=== PATIENT | female | born 1975 | race Caucasian/White ===

== ENCOUNTER 2018-09-30 08:10 | Day surgery (SDC) | payer BC, OTHER ==
[~2018-09-30] VITALS: Ht 157.5 cm; Wt 76.6 kg
[~2018-09-30 08:10] MED LIST: LIDOCAINE 2%, 20ML ONE; LIDOCAINE 4% TOPICAL SOLUTION 50 ML ONE
[2018-09-30] MEDS ORDERED: FENTANYL PF 100 MCG/2ML ONE (08:46)
[2018-09-30] MEDS ORDERED: MIDAZOLAM 1 MG/ML, 5ML ONE (08:46)
[2018-09-30 08:54] VITALS: BP 127/78
[2018-09-30] MEDS ORDERED: PLEASE ENTER ALLERGIES MC SCH (09:00)
[2018-09-30] MEDS ORDERED: PLEASE ENTER HEIGHT AND WEIGHT MC SCH (09:00)
[2018-09-30 09:18] LABS: HCG UR SG > 1.045 (1.003-1.030)
[2018-09-30 09:21] LABS: BASOPHILS # (AUTO) 0.07 x10^3/uL (0-0.1); BASOPHILS % (AUTO) 0 % (0-1); EOSINOPHILS # (AUTO) 0.43 x10^3/uL (0-0.4); EOSINOPHILS % (AUTO) 3 % (1-7); LYMPHOCYTES # (AUTO) 4.11 x10^3/uL (1-3.4); LYMPHOCYTES % (AUTO) 27 % (22-44); MD NO; MEAN CORPUSCULAR HEMOGLOBIN 26.8 pg (27.0-34.8); MEAN CORPUSCULAR VOLUME 81.1 fL (80-100); MEAN PLATELET VOLUME 7.5 fL (7.4-10.4); MONOCYTES # (AUTO) 0.82 x10^3/uL (0.2-0.8); MONOCYTES % (AUTO) 5 % (2-9); NEUTROPHILS # (AUTO) 9.79 x10^3/uL (1.8-6.8); NEUTROPHILS % (AUTO) 64 % (42-75); PLATELET COUNT 384 x10^3/uL (130-400); RED BLOOD COUNT 5.76 x10^6/uL (3.82-5.3); RED CELL DISTRIBUTION WIDTH 14.9 % (9.6-15.2)
[2018-09-30 09:30] LABS: INTERNATIONAL NORMALIZED RATIO 1.06 (0.93-1.1); PROTHROMBIN TIME 11.2 Seconds (9.6-11.5)
[2018-09-30] MEDS ORDERED: SODIUM CHLORIDE 0.9% 1,000 ML IV SCH (10:00)
== END 2018-09-30 13:35 | disposition home or self-care (01) ==
LOC: OUT 08:10
PROVIDERS: ATTEND Internal Medicine Critical Care Medicine
DX: J40 Bronchitis, not specified as acute or chronic (principal); I10 Essential (primary) hypertension; F17.200 Nicotine dependence, unspecified, uncomplicated; Z79.01 Long term (current) use of anticoagulants
CPT/HCPCS: 31624; 36415; 81025; 85025; 85610; 85730; 87015; 87070; 87102; 87116; 87205; 87206; 88108; 88112; 88312; 99152; 99153; J2250; J3010; J3490

== ENCOUNTER → 2018-11-23 | Outpatient (CLI) | payer BC, OTHER | END | disposition home or self-care (01) | LOC: CFH 10:36 | PROVIDERS: ATTEND Registered Nurse | DX: R91.8 Other nonspecific abnormal finding of lung field (principal); R59.1 Generalized enlarged lymph nodes; R91.1 Solitary pulmonary nodule | CPT/HCPCS: 71250 ==

== ENCOUNTER 2018-12-17 08:39 | Inpatient (IN) | payer BC, OTHER ==
[2018-12-15 09:11] LABS: MEAN CORPUSCULAR HEMOGLOBIN 27.1 pg (27.0-34.8); MEAN CORPUSCULAR HGB CONC 33.1 g/dL (32.4-35.8); MEAN CORPUSCULAR VOLUME 81.8 fL (80-100); MEAN PLATELET VOLUME 7.8 fL (7.4-10.4); PLATELET COUNT 321 x10^3/uL (130-400)
[2018-12-15 09:21] LABS: ALANINE AMINOTRANSFERASE 76 U/L (12-78); ALBUMIN 3.9 g/dL (3.4-5.0); ANION GAP 5 mmol/L (5-15); CALCIUM 9.2 mg/dL (8.5-10.1); CHLORIDE 105 mmol/L (98-107); CREATININE 0.69 mg/dL (0.55-1.02)
[2018-12-15 09:23] LABS: ALKALINE PHOSPHATASE 95 U/L (45-117); BILIRUBIN,TOTAL 0.2 mg/dL (0.2-1.0); TOTAL PROTEIN 7.7 g/dL (6.4-8.2)
[2018-12-15 09:49] LABS: BASOPHILS # (AUTO) 0.04 x10^3/uL (0-0.1); BASOPHILS % (AUTO) 0 % (0-1); EOSINOPHILS # (AUTO) 0.52 x10^3/uL (0-0.4); EOSINOPHILS % (AUTO) 4 % (1-7); LYMPHOCYTES # (AUTO) 5.41 x10^3/uL (1-3.4); LYMPHOCYTES % (AUTO) 39 % (22-44); MD SCAN; MONOCYTES # (AUTO) 1.03 x10^3/uL (0.2-0.8); MONOCYTES % (AUTO) 7 % (2-9); NEUTROPHILS # (AUTO) 6.98 x10^3/uL (1.8-6.8); NEUTROPHILS % (AUTO) 50 % (42-75)
[~2018-12-17] VITALS: Ht 157.5 cm; Wt 88.1 kg
[~2018-12-17 08:39] MED LIST changes: +ALPR-475 PO; +BUPIVACAINE/PF-EPI 0.5% 1:200K ONE; +CHOL100015 PO; +CITA40TA12 PO; +DULA0.75 SC; +EMPA25TA PO; +EZET10TA18 PO; +FLUC200T PO; +LEVO5TAB29 PO; -LIDOCAINE 2%, 20ML ONE; -LIDOCAINE 4% TOPICAL SOLUTION 50 ML ONE; +PREG150C PO; +TRAM-47 PO
[2018-12-17] MEDS ORDERED: LACTATED RINGERS 1,000 ML IV SCH (09:12)
[2018-12-17 09:41] LABS: HCG UR SG 1.042 (1.003-1.030)
[2018-12-17] MEDS ORDERED: MIDAZOLAM 1 MG/ML, 2ML ONE (10:34)
[2018-12-17] MEDS ORDERED: FENTANYL PF 250 MCG/5ML ONE (10:35)
[2018-12-17] MEDS ORDERED: CLINDAMYCIN 150 MG/ML, 6ML ONE (11:05)
[2018-12-17] MEDS ORDERED: hydrALAzine 20 MG/ML, 1ML IVPush PRN (12:00)
[2018-12-17] MEDS ORDERED: KETOROLAC 30 MG/1 ML IVPush PRN (12:00)
[2018-12-17] MEDS ORDERED: ACETAMINOPHEN 325 MG TABLET PO PRN ×2 (12:00→12:30)
[2018-12-17] MEDS: FAMOTIDINE 20 MG TABLET PO SCH ×2 (12:00→22:48)
[2018-12-17] MEDS ORDERED: ONDANSETRON 2MG/ML, 2ML IVPush PRN (12:00)
[2018-12-17] MEDS: INSULIN REGULAR 100 UNITS/ML, 3ML VIAL SQ-INSULIN SCH ×3 (12:00→21:33)
[2018-12-17] MEDS: FAMOTIDINE 20 MG/2 ML IVPush SCH (12:00)
[2018-12-17] MEDS: LACTATED RINGERS 1,000 ML IV SCH ×2 (12:00→22:00)
[2018-12-17] MEDS ORDERED: ACETAMINOPHEN 650 MG SUPP PR PRN (12:00)
[2018-12-17] MEDS ORDERED: DIPHENHYDRAMINE 25 MG CAPSULE PO PRN (12:00)
[2018-12-17] MEDS ORDERED: ENALAPRILAT 1.25 MG/ML, 2ML IVPush PRN (12:00)
[2018-12-17] MEDS ORDERED: KETOROLAC 30 MG/1 ML ONE (12:07)
[2018-12-17] MEDS ORDERED: OXYcodone 5 MG/5 ML ORAL.SOL UDC ONE (12:08)
[2018-12-17] MEDS ORDERED: FENTANYL PF 100 MCG/2ML ONE (12:08)
[2018-12-17] MEDS: FENTANYL PF 100 MCG/2ML IV PRN ×2 (12:11→12:21)
[2018-12-17] MEDS ORDERED: MEPERIDINE/PF 25MG/ML,1ML ONE ×2 (12:22→12:41)
[2018-12-17] MEDS: MEPERIDINE/PF 25MG/0.5ML IVPush PRN ×3 (12:27→12:59)
[2018-12-17] MEDS ORDERED: LABETALOL 5MG/ML, 20ML IV PRN (12:30)
[2018-12-17] MEDS ORDERED: KETOROLAC 30 MG/1 ML IV PRN (12:30)
[2018-12-17] MEDS ORDERED: HYDROmorphone 2 MG/ML, 1ML IVPush PRN (12:30)
[2018-12-17] MEDS ORDERED: OXYcodone 5 MG/5 ML ORAL.SOL UDC PO PRN (12:30)
[2018-12-17] MEDS ORDERED: hydrALAzine 20 MG/ML, 1ML IV PRN (12:30)
[2018-12-17] MEDS ORDERED: DIAZEPAM 5 MG/ML, 2ML IVPush PRN (12:30)
[2018-12-17] MEDS ORDERED: ALBUTEROL SULFATE 2.5 MG/3 ML NPPB PRN (12:30)
[2018-12-17] MEDS ORDERED: PROMETHAZINE 25 MG/ML, 1ML IV PRN (12:30)
[2018-12-17] MEDS ORDERED: EPHEDRINE 50 MG/ML, 1ML ONE (14:37)
[2018-12-17] MEDS ORDERED: DEXAMETHASONE 4 MG/ML, 1ML ONE (14:37)
[2018-12-17] MEDS ORDERED: ONDANSETRON 2MG/ML, 2ML ONE (14:37)
[2018-12-17] MEDS ORDERED: PROPOFOL 10 MG/ML, 20ML ONE (14:37)
[2018-12-17] MEDS ORDERED: SUGAMMADEX 200 MG/2 ML IVPush ONE (14:37)
[2018-12-17] MEDS ORDERED: ROCURONIUM 10MG/ML,5ML ONE (14:37)
[2018-12-17] MEDS: OXYcodone IR 5MG TABLET PO PRN ×2 (18:52→22:48)
[2018-12-17 19:57] VITALS: BP 109/64
[2018-12-17] MEDS: LEVOCETIRIZINE 5 MG TAB PO SCH (21:33)
[2018-12-17] MEDS: PREGABALIN 150 MG CAPSULE PO SCH (21:33)
[2018-12-17] MEDS: EZETIMIBE 10 MG TABLET PO SCH (21:33)
[2018-12-18 00:46] VITALS: BP 99/63
[2018-12-18 03:37] VITALS: BP 101/62
[2018-12-18] MEDS: OXYcodone IR 5MG TABLET PO PRN ×5 (03:51→21:59)
[2018-12-18 05:57] LABS: MEAN CORPUSCULAR HEMOGLOBIN 27.5 pg (27.0-34.8); MEAN CORPUSCULAR HGB CONC 33.3 g/dL (32.4-35.8); MEAN CORPUSCULAR VOLUME 82.6 fL (80-100); MEAN PLATELET VOLUME 8.1 fL (7.4-10.4); PLATELET COUNT 287 x10^3/uL (130-400); RED BLOOD COUNT 4.43 x10^6/uL (3.82-5.3); RED CELL DISTRIBUTION WIDTH 16.2 % (9.6-15.2)
[2018-12-18 06:02] LABS: ANION GAP 8 mmol/L (5-15); CALCIUM 8.5 mg/dL (8.5-10.1); CHLORIDE 105 mmol/L (98-107); CREATININE 0.85 mg/dL (0.55-1.02)
[2018-12-18 07:01] LABS: BASOPHILS # (AUTO) 0.02 x10^3/uL (0-0.1); BASOPHILS % (AUTO) 0 % (0-1); EOSINOPHILS % (AUTO) 0 % (1-7); LYMPHOCYTES # (AUTO) 1.88 x10^3/uL (1-3.4); LYMPHOCYTES % (AUTO) 11 % (22-44); MD SCAN; MONOCYTES % (AUTO) 8 % (2-9); NEUTROPHILS # (AUTO) 13.86 x10^3/uL (1.8-6.8); NEUTROPHILS % (AUTO) 81 % (42-75)
[2018-12-18] MEDS: INSULIN REGULAR 100 UNITS/ML, 3ML VIAL SQ-INSULIN SCH ×4 (07:23→20:27)
[2018-12-18 08:00] VITALS: BP 103/63
[2018-12-18] MEDS: LACTATED RINGERS 1,000 ML IV SCH ×3 (08:00→23:44)
[2018-12-18] MEDS: ENOXAPARIN 40 MG/0.4 ML SQ SCH (08:57)
[2018-12-18] MEDS: PREGABALIN 150 MG CAPSULE PO SCH ×2 (08:57→20:27)
[2018-12-18] MEDS: (Empagliflozin (Jardiance) 25 MG) PO SCH (09:00)
[2018-12-18] MEDS: morphine SULFATE 10 MG/ML, 1ML IVPush PRN ×3 (09:04→19:25)
[2018-12-18] MEDS: FAMOTIDINE 20 MG/2 ML IVPush SCH ×3 (12:00→21:57)
[2018-12-18] MEDS: FAMOTIDINE 20 MG TABLET PO SCH ×2 (12:57→23:44)
[2018-12-18 13:30] VITALS: BP 130/70
[2018-12-18 19:18] VITALS: BP 117/48
[2018-12-18] MEDS: LEVOCETIRIZINE 5 MG TAB PO SCH (20:27)
[2018-12-18] MEDS: EZETIMIBE 10 MG TABLET PO SCH (20:27)
[2018-12-19 01:21] VITALS: BP 126/78
[2018-12-19] MEDS: OXYcodone IR 5MG TABLET PO PRN ×3 (04:14→16:22)
[2018-12-19] MEDS: INSULIN REGULAR 100 UNITS/ML, 3ML VIAL SQ-INSULIN SCH ×4 (06:06→21:03)
[2018-12-19] MEDS: morphine SULFATE 10 MG/ML, 1ML IVPush PRN ×3 (06:09→19:00)
[2018-12-19 09:12] VITALS: BP 107/69
[2018-12-19] MEDS: (Empagliflozin (Jardiance) 25 MG) PO SCH (09:15)
[2018-12-19] MEDS: PREGABALIN 150 MG CAPSULE PO SCH ×2 (09:15→20:57)
[2018-12-19] MEDS: ENOXAPARIN 40 MG/0.4 ML SQ SCH (09:15)
[2018-12-19] MEDS: FAMOTIDINE 20 MG TABLET PO SCH ×2 (12:17→21:03)
[2018-12-19] MEDS: FAMOTIDINE 20 MG/2 ML IVPush SCH ×2 (12:17→21:01)
[2018-12-19 13:12] VITALS: BP 106/71
[2018-12-19] MEDS: LACTATED RINGERS 1,000 ML IV SCH ×2 (14:28→21:00)
[2018-12-19] MEDS ORDERED: ALBUTEROL SULFATE 2.5 MG/3 ML NPPB PRN (16:30)
[2018-12-19 19:03] VITALS: BP 117/75
[2018-12-19] MEDS ORDERED: IBUPROFEN 600 MG TABLET ONE (20:22)
[2018-12-19] MEDS: IBUPROFEN 200 MG TABLET PO SCH (20:24)
[2018-12-19] MEDS: LEVOCETIRIZINE 5 MG TAB PO SCH (20:57)
[2018-12-19] MEDS: EZETIMIBE 10 MG TABLET PO SCH (20:57)
[2018-12-19] MEDS: ACETAMINOPHEN 500 MG TABLET PO SCH (20:58)
[2018-12-20 00:40] VITALS: BP 106/63
[2018-12-20] MEDS: ACETAMINOPHEN 500 MG TABLET PO SCH ×2 (02:40→08:01)
[2018-12-20] MEDS: INSULIN REGULAR 100 UNITS/ML, 3ML VIAL SQ-INSULIN SCH ×2 (06:24→11:00)
[2018-12-20 07:14] VITALS: BP 107/68
[2018-12-20] MEDS: ENOXAPARIN 40 MG/0.4 ML SQ SCH (08:01)
[2018-12-20] MEDS: IBUPROFEN 200 MG TABLET PO SCH ×2 (08:01→12:00)
[2018-12-20] MEDS: (Empagliflozin (Jardiance) 25 MG) PO SCH (08:01)
[2018-12-20] MEDS: OXYcodone IR 5MG TABLET PO PRN (08:07)
[2018-12-20] MEDS: PREGABALIN 150 MG CAPSULE PO SCH (08:07)
[2018-12-20] MEDS ORDERED: OXYC5TAB2 PO (09:41)
[2018-12-20] MEDS ORDERED: IBUP100O24 PO (09:45)
[2018-12-20] MEDS ORDERED: ACET-1600 PO (09:48)
[2018-12-20] MEDS: LACTATED RINGERS 1,000 ML IV SCH (10:00)
[2018-12-20] MEDS: FAMOTIDINE 20 MG/2 ML IVPush SCH (12:00)
[2018-12-20] MEDS: FAMOTIDINE 20 MG TABLET PO SCH (12:00)
[2018-12-20 12:08] VITALS: BP 111/70
== END 2018-12-20 12:30 | disposition home or self-care (01) | DRG 168 ==
LOC: ORIP 08:39 → 4NOR 14:04
PROVIDERS: ADMIT Surgery; ATTEND Surgery
PROC: 0BBG4ZX Excision of Left Upper Lung Lobe, Percutaneous Endoscopic Approach, Diagnostic (ICD-10-PCS; 2018-12-17)
PROC: 0BBJ4ZX Excision of Left Lower Lung Lobe, Percutaneous Endoscopic Approach, Diagnostic (ICD-10-PCS; principal; 2018-12-17 11:00)
PROC: 0WP8X0Z Removal of Drainage Device from Chest Wall, External Approach (ICD-10-PCS; 2018-12-19)
DX: J84.9 Interstitial pulmonary disease, unspecified (principal); J44.9 Chronic obstructive pulmonary disease, unspecified; Z72.0 Tobacco use; Z88.0 Allergy status to penicillin; Z88.8 Allergy status to other drugs, medicaments and biological substances
CPT/HCPCS: 36415; S0077; 71045; 80048; 80053; 81025; 82962; 85025; 86850; 86900; 87015; 87070; 87075; 87102; 87116; 87205; 87206; 87252; 88305; 93005; C1729; G0378; J1100; J1650; J1815; J1885; J2175; J2250; J2405; J2704; J3010; J2270; J7120

== ENCOUNTER 2019-02-23 09:21 | Outpatient (CLI) | payer BC, OTHER ==
[~2019-02-23 09:21] MED LIST changes: +ACET-1600 PO; -BUPIVACAINE/PF-EPI 0.5% 1:200K ONE; +IBUP100O24 PO; +OXYC5TAB2 PO
== END 2019-02-23 23:59 | disposition home or self-care (01) ==
LOC: RAD 09:21
PROVIDERS: ATTEND Internal Medicine Critical Care Medicine
DX: R91.8 Other nonspecific abnormal finding of lung field (principal)
CPT/HCPCS: 78306; A9503

== ENCOUNTER → 2019-10-28 | Outpatient (CLI) | payer BC, OTHER ==
[~2019-10-28] MED LIST changes: -ALPR-475 PO; +ALPR0.5T7 PO; -EZET10TA18 PO; +EZET10TA70 PO
== END | disposition home or self-care (01) ==
LOC: RAD 14:03
PROVIDERS: ATTEND Internal Medicine
DX: R06.02 Shortness of breath (principal)
CPT/HCPCS: 71046

== ENCOUNTER 2019-12-03 14:13 | Emergency (ER) | payer BC, OTHER ==
[~2019-12-03] VITALS: Ht 157.5 cm; Wt 84.0 kg
--- NOTE | 2019-12-03 14:40 | NUR ---
PT CAME IN CO OF "INTERMITTMENT FEVERS AND SOB FOR OVER A MONTH". PT SAYS SHE TOOK 500MG TYLENOL THIS MORNING. 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 EKG COMPELTE
[2019-12-03 15:21] LABS: BASOPHILS # (AUTO) 0.04 x10^3/uL (0-0.1); BASOPHILS % (AUTO) 1 % (0-1); EOSINOPHILS # (AUTO) 0.36 x10^3/uL (0-0.4); EOSINOPHILS % (AUTO) 4 % (1-7); LYMPHOCYTES # (AUTO) 4.53 x10^3/uL (1-3.4); LYMPHOCYTES % (AUTO) 50 % (22-44); MD NO; MEAN CORPUSCULAR HEMOGLOBIN 28.1 pg (27.0-34.8); MEAN CORPUSCULAR HGB CONC 32.9 g/dL (32.4-35.8); MEAN CORPUSCULAR VOLUME 85.5 fL (80-100); MEAN PLATELET VOLUME 7.6 fL (7.4-10.4); MONOCYTES # (AUTO) 0.58 x10^3/uL (0.2-0.8); MONOCYTES % (AUTO) 6 % (2-9); NEUTROPHILS # (AUTO) 3.52 x10^3/uL (1.8-6.8); NEUTROPHILS % (AUTO) 39 % (42-75); PLATELET COUNT 326 x10^3/uL (130-400); RED BLOOD COUNT 5.34 x10^6/uL (3.82-5.3); RED CELL DISTRIBUTION WIDTH 13.4 % (9.6-15.2)
[2019-12-03 15:22] LABS: ALANINE AMINOTRANSFERASE 43 U/L (12-78); ALBUMIN 4.1 g/dL (3.4-5.0); ANION GAP 6 mmol/L (5-15); CALCIUM 9.1 mg/dL (8.5-10.1); CHLORIDE 110 mmol/L (98-107); CREATININE 0.92 mg/dL (0.55-1.02)
[2019-12-03 15:24] LABS: ALKALINE PHOSPHATASE 89 U/L (45-117); BILIRUBIN,TOTAL 0.3 mg/dL (0.2-1.0); TOTAL PROTEIN 7.5 g/dL (6.4-8.2)
--- NOTE | 2019-12-03 15:50 | NUR ---
PT AMBULATED TO BATHROOM
[2019-12-03] MEDS ORDERED: SODIUM CHLORIDE FLUSH 10ML SYR IVF ONE (16:00)
--- NOTE | 2019-12-03 16:50 | NUR ---
PT RESTING IN [facility]. WATCHING MOVIES ON IPAD. NAD. PLASCENCIA.
--- NOTE | 2019-12-03 17:43 | NUR ---
PT TO CT AT THIS TIME
[2019-12-03] MEDS ORDERED: OMNIPAQUE 350 MG/ML, 75ML BOTTLE ONE (17:55)
[2019-12-03 18:02] VITALS: BP 117/63
--- NOTE | 2019-12-03 18:02 | NUR ---
PT RESTING IN [facility]. VSS. AWAIING CT RESULTS.
== END 2019-12-03 19:29 | disposition home or self-care (01) ==
LOC: ED 14:50
DX: R06.00 Dyspnea, unspecified (principal); R50.9 Fever, unspecified; R07.89 Other chest pain
CPT/HCPCS: 36415; 71045; 71260; 80053; 83605; 84145; 85025; 87040; 93005; 99285; Q9967

== ENCOUNTER 2019-12-07 10:37 | Outpatient (CLI) | payer BC, OTHER ==
[~2019-12-07 10:37] MED LIST changes: +REGADENOSON 0.4 MG/5 ML SYRINGE ONE
== END 2019-12-07 23:59 | disposition home or self-care (01) ==
LOC: CFH 10:37
PROVIDERS: ATTEND Internal Medicine Cardiovascular Disease
DX: I36.1 Nonrheumatic tricuspid (valve) insufficiency (principal); I10 Essential (primary) hypertension
CPT/HCPCS: 78452; 93017; 93306; A9502; J2785

== ENCOUNTER → 2020-02-09 | Outpatient (CLI) | payer BC, OTHER ==
[~2020-02-09] MED LIST changes: +OMNIPAQUE 350 MG/ML, 75ML BOTTLE ONE; -REGADENOSON 0.4 MG/5 ML SYRINGE ONE
[2020-02-09 18:22] LABS: CREATININE 1.08 mg/dL (0.55-1.02)
== END | disposition home or self-care (01) ==
LOC: RAD 17:47
PROVIDERS: ATTEND Family Medicine
DX: R91.8 Other nonspecific abnormal finding of lung field (principal); Z87.01 Personal history of pneumonia (recurrent)
CPT/HCPCS: 36415; 71260; 82565; Q9967

== ENCOUNTER → 2020-11-09 | Outpatient (CLI) | payer OTHER ==
[~2020-11-09] MED LIST changes: -OMNIPAQUE 350 MG/ML, 75ML BOTTLE ONE
== END | disposition home or self-care (01) ==
LOC: CFH 12:05
PROVIDERS: ATTEND Registered Nurse
DX: J45.30 Mild persistent asthma, uncomplicated (principal)
CPT/HCPCS: 71046